=== PATIENT | male | born 1980 | race Caucasian/White ===

== ENCOUNTER 2019-03-06 17:30 | Emergency (ER) | payer SELFPAY ==
[2019-03-06] MEDS ORDERED: HYDROCODONE/APAP 5/325 MG TAB ONE (18:33)
[2019-03-06] MEDS ORDERED: CLINDAMYCIN HCL 150 MG CAP ONE (18:33)
--- NOTE | 2019-03-06 18:46 | ER ---
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 Transition of care: patient was not received from another setting of care. Onset of symptoms was March 06, 2019. Risk Assessment: Do you want to hurt yourself or someone else? Patient reports no desire to harm self or others. Initial Sepsis Screen: Does the patient meet any 2 criteria? No. Patient's initial sepsis screen is negative. Does the patient have a suspected source of infection? No. Patient's initial sepsis screen is negative. Care prior to arrival: None. 17:34 Method Of Arrival: Ambulatory 17:34 Acuity: VIRGIL 4 hj Historical: - Allergies: 17:35 No Known Allergies; hj - PMHx: 17:35 None; hj - PSHx: 17:35 None; hj - Immunization history:: Adult Immunizations up to date. - Social history:: Smoking status: Patient/guardian denies using tobacco. - Ebola Screening: : Patient denies exposure to infectious person Patient denies travel to an Ebola-affected area in the 21 days before illness onset. Screenin:50 Abuse screen: Denies threats or abuse. Denies injuries from another. Nutritional ss screening: No deficits noted. Tuberculosis screening: Never had TB. Fall Risk None identified. Assessment: 17:55 General: Appears in no apparent distress. comfortable, Behavior is calm, cooperative. ss Pain: Complains of pain in right inner thigh Pain currently is 6 out of 10 on a pain scale. Quality of pain is described as tender, Is continuous. Neuro: Level of Consciousness is awake, alert, obeys commands. Cardiovascular: Capillary refill < 3 seconds is brisk in bilateral fingers. Respiratory: Airway is patent Respiratory effort is even, unlabored, Respiratory pattern is regular, symmetrical. EENT: Nares are clear Oral mucosa is moist. Throat is clear. Derm: Skin is intact, is healthy with good turgor, Skin is pink, warm \T\ dry. normal. Musculoskeletal: Range of motion: intact in all extremities. Vital Signs: 17:36 BP 105 / 84; Pulse 85; Resp 16; Temp 97.9(O); Pulse Ox 98% on R/A; Weight 65.77 kg; hj Height 5 ft. 2 in. (157.48 cm); Pain 6/10; 17:36 Body Mass Index 26.52 (65.77 kg, 157.48 cm) hj ED Course: 17:32 Patient arrived in ED. mr 17:35 Triage completed. hj 17:35 Arm band placed on left wrist. hj 17:43 Fanta Farr [facility]NP-C [facility]. snw 17:43 Herminio Conroy MD is Attending Physician. snw 17:50 Patient has correct armband on for positive identification. Bed in low position. Call ss light in reach. 19:11 No provider procedures requiring assistance completed. Patient did not have IV access ss during this emergency room visit. Administered Medications: 18:17 Drug: Clindamycin 300 mg Route: PO; hj 18:22 Follow up: Response: No adverse reaction hj 18:17 Drug: [place] 5 mg-325 mg 1 tabs Route: PO; hj 18:22 Follow up: Response: No adverse reaction hj Outcome: 18:45 Discharge ordered by . snw 19:11 Discharged to home ambulatory. ss 19:11 Condition: good 19:11 Discharge instructions given to patient, family, Instructed on discharge instructions, follow up and referral plans. wound care, Demonstrated understanding of instructions, follow-up care, medications, Prescriptions given X 2. 19:13 Patient left the ED. ss Signatures: Fanta Farr FNP-C BLOOD BANK BUSINESS MANAGER-Eric Jodi Abbott Estefany Kellogg RN RN Paulo Kohli RN RN Corrections: (The following items were deleted from the chart) 17:37 17:36 Pulse 85bpm; Resp 16bpm; Pulse Ox 98% RA; Temp 97.9F Oral; 65.77 kg; Height 5 ft. hj 2 in.; BMI: 26.5; Pain 6/10; hj 17:38 17:34 Presenting complaint: Patient states: i noticed this morning probably i got bit hj by an insect and hurts now; denies taking meds RESEARCH INSTRUCTOR: hj
--- NOTE | 2019-03-06 18:46 | EDPHYS ---
Physician Documentation [facility] Name: Garland Benitez Age: 38 yrs Sex: Male : 1980 Arrival Date: 03/06/2019 Time: 17:32 Bed 11 Private MD: ED Physician Herminio Conroy HPI: 03/06 18:43 This 38 yrs old Male presents to ER via Ambulatory with complaints of Leg snw Pain. 18:43 The patient presents with pain, that is acute. The complaints affect the right inner snw thigh. Context: The problem was sustained at home, abscess to right medial, upper thigh. Onset: The symptoms/episode began/occurred suddenly, this morning. Associated signs and symptoms: The patient has no apparent associated signs or symptoms. Treatment prior to arrival includes: no previous treatment. Severity of symptoms: At their worst the symptoms were moderate. The patient has experienced similar episodes in the past, multiple times. It is unknown whether or not the patient has recently seen a physician. Historical: - Allergies: 17:35 No Known Allergies; hj - PMHx: 17:35 None; hj - PSHx: 17:35 None; hj - Immunization history:: Adult Immunizations up to date. - Social history:: Smoking status: Patient/guardian denies using tobacco. - Ebola Screening: : Patient denies exposure to infectious person Patient denies travel to an Ebola-affected area in the 21 days before illness onset. ROS: 18:31 Constitutional: Negative for fever, chills, and weight loss, Eyes: Negative for injury, snw pain, redness, and discharge, ENT: Negative for injury, pain, and discharge, Neck: Negative for injury, pain, and swelling, Cardiovascular: Negative for chest pain, palpitations, and edema, Respiratory: Negative for shortness of breath, cough, wheezing, and pleuritic chest pain, Abdomen/GI: Negative for abdominal pain, nausea, vomiting, diarrhea, and constipation, Back: Negative for injury and pain, : Negative for injury, bleeding, discharge, and swelling, Skin: Negative for injury, rash, and discoloration, Neuro: Negative for headache, weakness, numbness, tingling, and seizure. 18:31 MS/extremity: Positive for pain, of the right inner thigh, +staph, multiple times, this feels similar. Exam: 18:20 Constitutional: This is a well developed, well nourished patient who is awake, alert, snw and in no acute distress. Head/Face: Normocephalic, atraumatic. Eyes: Pupils equal round and reactive to light, extra-ocular motions intact. Lids and lashes normal. Conjunctiva and sclera are non-icteric and not injected. Cornea within normal limits. Periorbital areas with no swelling, redness, or edema. ENT: Nares patent. No nasal discharge, no septal abnormalities noted. Tympanic membranes are normal and external auditory canals are clear. Oropharynx with no redness, swelling, or masses, exudates, or evidence of obstruction, uvula midline. Mucous membranes moist. Neck: Trachea midline, no thyromegaly or masses palpated, and no cervical lymphadenopathy. Supple, full range of motion without nuchal rigidity, or vertebral point tenderness. No Meningismus. Chest/axilla: Normal chest wall appearance and motion. Nontender with no deformity. No lesions are appreciated. Cardiovascular: Regular rate and rhythm with a normal S1 and S2. No gallops, murmurs, or rubs. Normal PMI, no JVD. No pulse deficits. Respiratory: Lungs have equal breath sounds bilaterally, clear to auscultation and percussion. No rales, rhonchi or wheezes noted. No increased work of breathing, no retractions or nasal flaring. Abdomen/GI: Soft, non-tender, with normal bowel sounds. No distension or tympany. No guarding or rebound. No evidence of tenderness throughout. Back: No spinal tenderness. No costovertebral tenderness. Full range of motion. Neuro: Awake and alert, GCS 15, oriented to person, place, time, and situation. Cranial nerves II-XII grossly intact. Motor strength 5/5 in all extremities. Sensory grossly intact. Cerebellar exam normal. Normal gait. Psych: Awake, alert, with orientation to person, place and time. Behavior, mood, and affect are within normal limits. 18:20 Skin: Appearance: normal except for affected area, lesion(s), two areas of ingrown hair appearance with tenderness, no erythema to upper, medial, right thigh. Vital Signs: 17:36 BP 105 / 84; Pulse 85; Resp 16; Temp 97.9(O); Pulse Ox 98% on R/A; Weight 65.77 kg; hj Height 5 ft. 2 in. (157.48 cm); Pain 6/10; 17:36 Body Mass Index 26.52 (65.77 kg, 157.48 cm) MDM: 17:49 Patient medically screened. snw 18:54 Data reviewed: vital signs, nurses notes. Data interpreted: Pulse oximetry: on room air snw is 98 %. Interpretation: normal. Counseling: I had a detailed discussion with the patient and/or guardian regarding: the historical points, exam findings, and any diagnostic results supporting the discharge/admit diagnosis, the need for outpatient follow up, to return to the emergency department if symptoms worsen or persist or if there are any questions or concerns that arise at home. Response to treatment: There is no appreciated change of the patient's symptoms at this time. Special discussion: Based on the history and exam findings, there is no indication for further emergent testing or inpatient evaluation. I discussed with the patient/guardian the need to see the primary care provider for further evaluation of the symptoms. Administered Medications: 18:17 Drug: Clindamycin 300 mg Route: PO; 18:22 Follow up: Response: No adverse reaction 18:17 Drug: [place] 5 mg-325 mg 1 tabs Route: PO; 18:22 Follow up: Response: No adverse reaction Disposition: 03/07 07:04 Co-signature as Attending Physician, Herminio Conroy MD. rn Disposition: 03/06/19 18:45 Discharged to Home. Impression: Pain in right leg, Cutaneous abscess of groin. - Condition is Stable. - Discharge Instructions: Skin Abscess, Heat Therapy. - Prescriptions for Clindamycin HCl 300 mg Oral Capsule - take 1 capsule by ORAL route every 8 hours for 10 days; 30 capsule. Diclofenac Sodium 75 mg Oral Tablet Sustained Release - take 1 tablet by ORAL route 2 times per day; 30 tablet. - Medication Reconciliation Form, Thank You Letter, Antibiotic Education, Prescription Opioid Use form. - Follow up: Private Physician; When: 2 - 3 days; Reason: Recheck today's complaints, Continuance of care, Re-evaluation by your physician. Follow up: Emergency Department; When: As needed; Reason: Worsening of condition. Signatures: Fanta Farr, SOIL CONSERVATION AIDE-C SOIL CONSERVATION AIDE-Csnw Conroy, HerminioMD MD tommy Shelby, RN RN Paulo Muñoz RN RN Corrections: (The following items were deleted from the chart) 03/06 19:13 18:45 03/06/2019 18:45 Discharged to Home. Impression: Pain in right leg; Cutaneous ss abscess of groin. Condition is Stable. Forms are Medication Reconciliation Form, Thank You Letter, Antibiotic Education, Prescription Opioid Use. Follow up: Private Physician; When: 2 - 3 days; Reason: Recheck today's complaints, Continuance of care, Re-evaluation by your physician. Follow up: Emergency Department; When: As needed; Reason: Worsening of condition. snw
== END 2019-03-06 19:13 | disposition home or self-care (01) ==
LOC: ER 17:30
DX: L02.214 Cutaneous abscess of groin (principal)
CPT/HCPCS: 99283

== ENCOUNTER 2019-04-25 14:52 | Emergency (ER) | payer SELFPAY ==
[2019-04-25] MEDS ORDERED: FLUCONAZOLE 100 MG TAB ONE (15:13)
--- NOTE | 2019-04-25 15:13 | EDPHYS ---
Physician Documentation [facility] Name: Garland Benitez Age: 39 yrs Sex: Male : 1980 Arrival Date: 04/25/2019 Time: 14:54 Bed 11 Private MD: ED Physician Yazan Patino HPI: 04/25 15:14 This 39 yrs old Male presents to ER via Ambulatory with complaints of Rash. snw 15:14 The patient's rash thought to be caused by Dermatitis. The rash is located on the snw anterior aspect of right lateral abdomen. The rash can be described as circular with central clearing. Onset: The symptoms/episode began/occurred gradually, last week. Severity of symptoms: At their worst the symptoms were mild. Treatment given at home: none. It is unknown whether or not the patient has had similar symptoms in the past. It is unknown whether or not the patient has recently seen a physician. Historical: - Allergies: 15:14 Bactrim; la1 - PMHx: 14:59 None; la1 - Immunization history:: Adult Immunizations up to date. - Social history:: Smoking status: Patient/guardian denies using tobacco. - Ebola Screening: : No symptoms or risks identified at this time. ROS: 15:13 Constitutional: Negative for fever, chills, and weight loss, Eyes: Negative for injury, snw pain, redness, and discharge, ENT: Negative for injury, pain, and discharge, Neck: Negative for injury, pain, and swelling, Cardiovascular: Negative for chest pain, palpitations, and edema, Respiratory: Negative for shortness of breath, cough, wheezing, and pleuritic chest pain, Abdomen/GI: Negative for abdominal pain, nausea, vomiting, diarrhea, and constipation, Back: Negative for injury and pain, : Negative for injury, bleeding, discharge, and swelling, MS/Extremity: Negative for injury and deformity, Neuro: Negative for headache, weakness, numbness, tingling, and seizure, Psych: Negative for depression, anxiety, suicide ideation, homicidal ideation, and hallucinations. 15:13 Skin: Positive for rash. Exam: 15:13 Constitutional: This is a well developed, well nourished patient who is awake, alert, snw and in no acute distress. Head/Face: Normocephalic, atraumatic. Eyes: Pupils equal round and reactive to light, extra-ocular motions intact. Lids and lashes normal. Conjunctiva and sclera are non-icteric and not injected. Cornea within normal limits. Periorbital areas with no swelling, redness, or edema. ENT: Nares patent. No nasal discharge, no septal abnormalities noted. Tympanic membranes are normal and external auditory canals are clear. Oropharynx with no redness, swelling, or masses, exudates, or evidence of obstruction, uvula midline. Mucous membranes moist. Neck: Trachea midline, no thyromegaly or masses palpated, and no cervical lymphadenopathy. Supple, full range of motion without nuchal rigidity, or vertebral point tenderness. No Meningismus. Chest/axilla: Normal chest wall appearance and motion. Nontender with no deformity. No lesions are appreciated. Cardiovascular: Regular rate and rhythm with a normal S1 and S2. No gallops, murmurs, or rubs. Normal PMI, no JVD. No pulse deficits. Respiratory: Lungs have equal breath sounds bilaterally, clear to auscultation and percussion. No rales, rhonchi or wheezes noted. No increased work of breathing, no retractions or nasal flaring. Abdomen/GI: Soft, non-tender, with normal bowel sounds. No distension or tympany. No guarding or rebound. No evidence of tenderness throughout. Back: No spinal tenderness. No costovertebral tenderness. Full range of motion. MS/ Extremity: Pulses equal, no cyanosis. Neurovascular intact. Full, normal range of motion. Neuro: Awake and alert, GCS 15, oriented to person, place, time, and situation. Cranial nerves II-XII grossly intact. Motor strength 5/5 in all extremities. Sensory grossly intact. Cerebellar exam normal. Normal gait. Psych: Awake, alert, with orientation to person, place and time. Behavior, mood, and affect are within normal limits. 15:13 Skin: Appearance: normal except for affected area, ringworm, on the right flank area. Vital Signs: 14:59 BP 110 / 74; Pulse 64; Resp 16; Temp 97.7; Pulse Ox 98% on R/A; Weight 70.31 kg; la1 MDM: 15:03 Patient medically screened. [facility] 15:15 Data reviewed: vital signs, nurses notes. Data interpreted: Pulse oximetry: on room air snw is 98 %. Interpretation: normal. Counseling: I had a detailed discussion with the patient and/or guardian regarding: the historical points, exam findings, and any diagnostic results supporting the discharge/admit diagnosis, the need for outpatient follow up, to return to the emergency department if symptoms worsen or persist or if there are any questions or concerns that arise at home. Special discussion: Based on the history and exam findings, there is no indication for further emergent testing or inpatient evaluation. I discussed with the patient/guardian the need to see the primary care provider for further evaluation of the symptoms. Administered Medications: 15: Drug: Fluconazole 200 mg Route: PO; la1 15:19 Follow up: Response: Medication administered at discharge. la1 Disposition: 04/26 06:50 Co-signature as Attending Physician, Yazan Patino MD I agree with the assessment and liz plan of care. Disposition: 04/25/19 15:10 Discharged to Home. Impression: Tinea corporis. - Condition is Stable. - Discharge Instructions: Body Ringworm. - Prescriptions for Clotrimazole 1 % Topical Cream - Apply to affected area 1 application by TOPICAL route every 12 hours; 15 gram. - Medication Reconciliation Form, Thank You Letter, Antibiotic Education, Prescription Opioid Use form. - Work release form (04/25/19 16:34). bd - Follow up: Private Physician; When: 2 - 3 days; Reason: Recheck today's complaints, Continuance of care, Re-evaluation by your physician. Follow up: Emergency Department; When: As needed; Reason: Worsening of condition. Signatures: Yazan Patino MD MD cha Therrien, Shelly, BENEFIT AUTHORIZER-C BENEFIT AUTHORIZER-Csnw Delgado Jaimes RN RN Arabella Harper bd Corrections: (The following items were deleted from the chart) 04/25 15:15 14:59 Allergies: No Known Allergies; la1 la1 15:19 15:10 04/25/2019 15:10 Discharged to Home. Impression: Tinea corporis. Condition is la1 Stable. Forms are Medication Reconciliation Form, Thank You Letter, Antibiotic Education, Prescription Opioid Use. Follow up: Private Physician; When: 2 - 3 days; Reason: Recheck today's complaints, Continuance of care, Re-evaluation by your physician. Follow up: Emergency Department; When: As needed; Reason: Worsening of condition. snw
--- NOTE | 2019-04-25 15:13 | ER ---
Nurse's Notes [facility] Name: Garland Benitez Age: 39 yrs Sex: Male : 1980 Arrival Date: 04/25/2019 Time: 14:54 Bed 11 Private MD: Diagnosis: Tinea corporis Presentation: 04/25 14:58 Presenting complaint: Patient states: I think I have ringworm on my belly. Transition la1 of care: patient was not received from another setting of care. Onset of symptoms was April 25, 2019. Risk Assessment: Do you want to hurt yourself or someone else? Patient reports no desire to harm self or others. Initial Sepsis Screen: Does the patient meet any 2 criteria? No. Patient's initial sepsis screen is negative. Does the patient have a suspected source of infection? No. Patient's initial sepsis screen is negative. Care prior to arrival: None. 14:58 Method Of Arrival: Ambulatory la1 14:58 Acuity: VIRGIL 5 la1 Historical: - Allergies: 15:14 Bactrim; la1 - PMHx: 14:59 None; la1 - Immunization history:: Adult Immunizations up to date. - Social history:: Smoking status: Patient/guardian denies using tobacco. - Ebola Screening: : No symptoms or risks identified at this time. Screenin:59 Abuse screen: Denies threats or abuse. Nutritional screening: No deficits noted. la1 Tuberculosis screening: No symptoms or risk factors identified. Fall Risk None identified. Assessment: 14:59 General: Appears in no apparent distress. Behavior is calm, cooperative. Pain: Denies la1 pain. Neuro: Level of Consciousness is awake, alert, obeys commands, Gait is steady. Cardiovascular: Capillary refill < 3 seconds Patient's skin is warm and dry. Derm: Rash noted that is round maculopapular rash noted to abd, multiple sites. Pt reports itching. Vital Signs: 14:59 BP 110 / 74; Pulse 64; Resp 16; Temp 97.7; Pulse Ox 98% on R/A; Weight 70.31 kg; la1 ED Course: 14:54 Patient arrived in ED. as 14:57 [facility]C [facility] snw 14:57 Herminio Conroy MD is Attending Physician. snw 14:58 Triage completed. la1 14:59 Arm band placed on right wrist. la1 15:00 Patient has correct armband on for positive identification. la1 15:03 Attending Physician role handed off by Herminio Conroy MD [facility] 15:03 Yazan Patino MD is Attending Physician. [facility] 15:15 No provider procedures requiring assistance completed. Patient did not have IV access la1 during this emergency room visit. 15:18 Delgado Jaimes, RN is Primary Nurse. la1 Administered Medications: 15:19 Drug: Fluconazole 200 mg Route: PO; la1 15:19 Follow up: Response: Medication administered at discharge. la1 Outcome: 15:10 Discharge ordered by MD. snw 15:15 Discharged to home ambulatory. la1 15:15 Condition: stable 15:15 Discharge instructions given to patient, Instructed on discharge instructions, follow up and referral plans. medication usage, Demonstrated understanding of instructions, follow-up care, medications, Prescriptions given X 1. 15:19 Patient left the ED. la1 Signatures: Yazan Patino MD MD cha Therrien, Shelly, WIRELESS NETWORK ENGINEER-C WIRELESS NETWORK ENGINEER-Csnw Deanna Canales as Delgado Jaimes, RN RN la1 Corrections: (The following items were deleted from the chart) 15:15 14:59 Allergies: No Known Allergies; la1 la1
== END 2019-04-25 15:19 | disposition home or self-care (01) ==
LOC: ER 14:52
DX: B35.4 Tinea corporis (principal); Z88.1 Allergy status to other antibiotic agents
CPT/HCPCS: 99283

== ENCOUNTER 2019-11-27 10:20 | Emergency (ER) | payer SELFPAY ==
[2019-11-27] MEDS ORDERED: MORPHINE 4 MG/ML SYR ONE (10:50)
[2019-11-27] MEDS ORDERED: NA CHLORIDE 0.9% 1,000 ML ONE ×2 (10:50→12:26)
[2019-11-27] MEDS ORDERED: ONDANSETRON 4 MG/2 ML VIAL ONE (10:50)
[2019-11-27 11:11] LABS: Absolute Lymphocytes (CBC) 1.7 K/uL (0.7-4.9); Basophils % 0.9 % (0-1.3); Hematocrit 46.8 % (39.6-49.0); Lymphocytes % 13.5 % (15.3-44.8); MPV 8.4 fL (7.6-11.3)
--- NOTE | 2019-11-27 11:13 | RAD REPORT ---
EXAM DESCRIPTION: CT - Abdomen Pelvis Wo Contrast - 11/27/2019 11:02 am CLINICAL HISTORY: EPIGASTRIC PAIN Left flank and back pain COMPARISON: CT-STONE PROTOCOL dated 01/03/2008; CTSTONE PROTOCOL dated 02/03/2007 TECHNIQUE: Axial [address] imaging of the abdomen and pelvis was performed without IV contrast. No IV contrast was given because of allergy, abnormal renal function, patient refusal or physician re quest. No oral contrast administered. All CT scans are performed using dose optimization technique as appropriate and may include automated exposure control or mA/KV adjustment according to patient size. FINDINGS: No suspicious findings in the lung bases. The liver, spleen and pancreas show no suspicious findings on non-contrast imaging. Gallbladder and b iliary tree are also without suspicious finding. Mild left-sided hydronephrosis is present down to the UVJ. There is a 2- 3 millimeter stone in the bl adder likely recently passed from the left collecting system. Mucosal edema near the UVJ may be the e tiology for the hydronephrosis. There is minimal stranding along the course of the left ureter. No ot her obstructing or nonobstructing calculi. No right-sided hydronephrosis. No significant adrenal fin ding. Isodense renal masses and pyelonephritis cannot be excluded in the absence of IV contrast. No o ther urinary bladder calculi. Bladder is mostly contracted which accentuates wall thickness. No dilated bowel loops or bowel wall thickening. No free air, free fluid or pneumatosis. No mass or bulky lymphadenopathy. Patient has a small fat only umbilical hernia that has increased since the 200 8 comparison study. Small fat only inguinal hernias are present bilaterally. These also increased fro 2007. No suspicious bony findings. IMPRESSION: Mild left-sided hydronephrosis is present down to the left UVJ. There is a small 2- 3 mm stone in the bladder, likely recently passed from the left ureter. Blood, debris or remnant mucosal thickening may account for the residual left-sided hydronephrosis. No other obstructing or nonobstructing calculi. Pyelonephritis and isodense masses are not excluded i n the absence of contrast. No other significant findings noted. Full assessment is limited is the absence of IV contrast.
[2019-11-27] MEDS ORDERED: HYDROMORPHONE HCL 1 MG/ML INJ ONE (11:27)
[2019-11-27 11:44] LABS: ALT/SGPT 29 U/L (12-78); AST/SGOT 24 U/L (15-37); Albumin 3.9 g/dL (3.4-5.0); Alkaline Phosphatase 73 U/L (45-117); BUN Blood Urea Nitrogen 13 mg/dL (7-18); Bicarbonate 28 mmol/L (21-32); Bilirubin Direct < 0.1 mg/dL (0-0.2); Bilirubin Total 0.3 mg/dL (0.2-1.0); Glucose Level 130 mg/dL (74-106); Lipase 104 U/L (73-393); Potassium 4.2 mmol/L (3.5-5.1); Protein, Total 7.5 g/dL (6.4-8.2); Sodium Level 139 mmol/L (136-145)
--- NOTE | 2019-11-27 12:57 | EDPHYS ---
Physician Documentation [facility] Name: Garland Benitez Age: 39 yrs Sex: Male : 1980 Arrival Date: 11/27/2019 Time: 10:22 Bed 19 Private MD: ED Physician Victoriano Perdomo HPI: 11/26 12:54 This 39 yrs old Male presents to ER via Ambulatory with complaints of ma2 Abdominal Pain, Back Pain. 12:54 The patient presents with pain that is acute. Onset: The symptoms/episode ma2 began/occurred acutely, 1 day(s) ago. Associated signs and symptoms: Pertinent negatives: dysuria, hematuria, nausea, numbness. Severity of symptoms: At their worst the symptoms were very mild, severe, in the emergency department the symptoms have resolved, have improved. The patient has experienced a previous episode, The patient has experienced similar episodes in the past. Historical: - Allergies: 10:47 Bactrim; iw - Home Meds: 10:47 None [Active]; iw - PMHx: 10:47 None; iw - PSHx: 10:47 None; iw - Immunization history:: Adult Immunizations not up to date. - Social history:: Smoking status: Patient denies any tobacco usage or history of. Patient/guardian denies using alcohol, street drugs, The patient lives with spouse. - Family history:: not pertinent. ROS: 12:54 Constitutional: Negative for fever, chills, and weight loss. ma2 12:54 All other systems are negative. Exam: 12:54 Constitutional: This is a well developed, well nourished patient who is awake, alert, ma2 and in no acute distress. Chest/axilla: Normal chest wall appearance and motion. Nontender with no deformity. No lesions are appreciated. Cardiovascular: Regular rate and rhythm with a normal S1 and S2. No gallops, murmurs, or rubs. Normal PMI, no JVD. No pulse deficits. Respiratory: Lungs have equal breath sounds bilaterally, clear to auscultation and percussion. No rales, rhonchi or wheezes noted. No increased work of breathing, no retractions or nasal flaring. Abdomen/GI: Soft, non-tender, with normal bowel sounds. No distension or tympany. No guarding or rebound. No evidence of tenderness throughout. Vital Signs: 10:44 BP 112 / 82; Pulse 62; Resp 16; Temp 97.8; Pulse Ox 100% ; Weight 65.77 kg; Height 5 iw ft. 2 in. (157.48 cm); Pain 10/10; 11:31 BP 112 / 82; Pulse 64; Resp 17 S; Pulse Ox 99% on R/A; ca1 12:34 BP 134 / 93; Pulse 60; Resp 17 S; Pulse Ox 98% on R/A; ca1 13:02 BP 134 / 93; Pulse 55; Resp 17 S; Temp 97.7(O); Pulse Ox 97% on R/A; ca1 10:44 Body Mass Index 26.52 (65.77 kg, 157.48 cm) iw MDM: 10:32 Patient medically screened. ma2 12:54 Differential diagnosis: Metastatic Disease sickle cell crisis, sprain, ma2 Ureterolithiasis. Data reviewed: vital signs, nurses notes. Counseling: I had a detailed discussion with the patient and/or guardian regarding: the historical points, exam findings, and any diagnostic results supporting the discharge/admit diagnosis, the presence of at least one elevated blood pressure reading (>120/80) during this emergency department visit, lab results, the need for outpatient follow up. Response to treatment: the patient's symptoms have resolved after treatment. 11/26 10:47 Order name: Basic Metabolic Panel; Complete Time: 11:57 ma2 11/26 10:47 Order name: CBC with Diff; Complete Time: 11:57 ma2 11/26 10:47 Order name: Creatinine for Radiology; Complete Time: 11:57 ma2 11/26 10:47 Order name: Hepatic Function; Complete Time: 11:57 ma2 11/26 10:47 Order name: Lipase; Complete Time: 11:57 ma2 11/26 10:47 Order name: CT Abd/Pelvis - Without Contrast; Complete Time: 11:57 ma2 11/26 10:47 Order name: IV Saline Lock; Complete Time: 10:56 ma11/26 10:47 Order name: Labs collected and sent; Complete Time: 10:56 ma2 Administered Medications: 10:43 Drug: NS 0.9% 1000 ml Route: IV; Rate: 1 bolus; Site: left antecubital; ca1 12:00 Follow up: Response: No adverse reaction; IV Status: Completed infusion ca1 10:45 Drug: Zofran (Ondansetron) 4 mg Route: IVP; Site: left antecubital; ca1 11:25 Follow up: Response: No adverse reaction; Nausea is decreased ca1 10:48 Drug: morphine 4 mg {Note: rass - 0 .} Route: IVP; Site: left antecubital; ca1 11:25 Follow up: Response: No adverse reaction; Pain is unchanged, physician notified; RASS: ca1 Alert and Calm (0) 11:24 Drug: Dilaudid 1 mg {Note: RASS - 0.} Route: IVP; Site: left antecubital; ca1 12:30 Follow up: Response: No adverse reaction; Pain is decreased; RASS: Alert and Calm (0) ca1 12:26 Drug: NS 0.9% 1000 ml Route: IV; Rate: 1 bolus; Site: left antecubital; em Disposition: 11/27/19 12:56 Discharged to Home. Impression: Calculus in bladder. - Condition is Stable. - Discharge Instructions: Lithotripsy, Dietary Guidelines to Help Prevent Kidney Stones. - Prescriptions for Zofran 4 mg Oral Tablet - take 1 tablet by ORAL route every 12 hours As needed; 20 tablet. Flomax 0.4 mg Oral Capsule, Sust. Release 24 hr - take 1 capsule by ORAL route once daily 1/2 hour following the same meal each day; 30 capsule. Ibuprofen 800 mg Oral Tablet - take 1 tablet by ORAL route every 12 hours As needed take with food; 20 tablet. - Medication Reconciliation Form, Thank You Letter, Antibiotic Education, Prescription Opioid Use, Work release form form. - Follow up: Shea Charles MD; When: 24 Hours; Reason: If symptoms return, Further diagnostic work-up, Continuance of care. Signatures: Dispatcher [employer] Scott Sierra RN RN em Teresa Snell RN RN iw Alzahri, Mohammad, MD MD ma2 Acob, Cheryl, RN RN ca1 Corrections: (The following items were deleted from the chart) 13:43 10:47 Urine Dipstick-Ancillary ordered. nadir ca1 13:44 12:56 11/27/2019 12:56 Discharged to Home. Impression: Calculus in bladder. Condition ca1 is Stable. Prescriptions for Zofran 4 mg Oral Tablet - take 1 tablet by ORAL route every 12 hours As needed; 20 tablet, Flomax 0.4 mg Oral Capsule, Sust. Release 24 hr - take 1 capsule by ORAL route once daily 1/2 hour following the same meal each day; 30 capsule, Tylenol-Codeine #3 300-30 mg Oral Tablet - take 2 tablet by ORAL route every 6 hours As needed; 30 tablet. and Forms are Medication Reconciliation Form, Thank You Letter, Antibiotic Education, Prescription Opioid Use. Follow up: Shea Charles; When: 24 Hours; Reason: If symptoms return, Further diagnostic work-up, Continuance of care. ma2
--- NOTE | 2019-11-27 12:57 | ER ---
Nurse's Notes [facility] Name: Garland Benitez Age: 39 yrs Sex: Male : 1980 Arrival Date: 11/27/2019 Time: 10:22 Bed 19 Private MD: Diagnosis: Calculus in bladder Presentation: 11/26 10:44 Chief complaint: Patient states: mid abd pain and left mid back pain since this iw morning, +hx of kidney stones. Coronavirus screen: The patient has NOT traveled to a country currently being monitored by the [facility] within the last 14 days. The patient has NOT had contact with any known and/or suspected case of coronavirus. Proceed with normal triage procedures. Ebola Screen: Patient negative for fever greater than or equal to 101.5 degrees Fahrenheit, and additional compatible Ebola Virus Disease symptoms Patient denies travel to an Ebola-affected area in the 21 days before illness onset. Initial Sepsis Screen: Does the patient meet any 2 criteria? No. Patient's initial sepsis screen is negative. Does the patient have a suspected source of infection? No. Patient's initial sepsis screen is negative. Risk Assessment: Do you want to hurt yourself or someone else? Patient reports no desire to harm self or others. 10:44 Method Of Arrival: Ambulatory iw 10:44 Acuity: VIRGIL 3 iw 10:45 Onset of symptoms was November 27, 2019. ca1 Historical: - Allergies: 10:47 Bactrim; iw - Home Meds: 10:47 None [Active]; iw - PMHx: 10:47 None; iw - PSHx: 10:47 None; iw - Immunization history:: Adult Immunizations not up to date. - Social history:: Smoking status: Patient denies any tobacco usage or history of. Patient/guardian denies using alcohol, street drugs, The patient lives with spouse. - Family history:: not pertinent. Screenin:45 Abuse screen: Denies threats or abuse. Denies injuries from another. Nutritional ca1 screening: No deficits noted. Tuberculosis screening: No symptoms or risk factors identified. Fall Risk IV access (20 points). Assessment: 10:45 General: Appears in no apparent distress. uncomfortable, Behavior is cooperative, ca1 appropriate for age. Pain: Complains of pain in right lower quadrant and left lower quadrant Pain radiates to left low back and left mid back Pain currently is 10 out of 10 on a pain scale. Is continuous. Neuro: Level of Consciousness is awake, alert, obeys commands, Oriented to person, place, time, situation, Appropriate for age. Cardiovascular: Heart tones S1 S2 present Capillary refill < 3 seconds Patient's skin is warm and dry. Respiratory: Airway is patent Respiratory effort is even, unlabored, Respiratory pattern is regular, symmetrical, Breath sounds are clear bilaterally. GI: Abdomen is flat, non-distended, Bowel sounds present X 4 quads. Abd is soft and non tender X 4 quads. : No signs and/or symptoms were reported regarding the genitourinary system. EENT: No signs and/or symptoms were reported regarding the EENT system. Derm: Skin is intact, is healthy with good turgor, Skin is pink, warm \T\ dry. Musculoskeletal: Circulation, motion, and sensation intact. Capillary refill < 3 seconds. 10:57 Reassessment: Pt to CT. ca1 11:31 Reassessment: Patient appears in no apparent distress at this time. Patient and/or ca1 family updated on plan of care and expected duration. Pain level reassessed. Patient is alert, oriented x 3, equal unlabored respirations, skin warm/dry/pink. 12:34 Reassessment: Patient appears in no apparent distress at this time. Patient and/or ca1 family updated on plan of care and expected duration. Pain level reassessed. Patient is alert, oriented x 3, equal unlabored respirations, skin warm/dry/pink. 13:02 Reassessment: Patient appears in no apparent distress at this time. Patient and/or ca1 family updated on plan of care and expected duration. Pain level reassessed. Patient is alert, oriented x 3, equal unlabored respirations, skin warm/dry/pink. Patient states feeling better. Vital Signs: 10:44 BP 112 / 82; Pulse 62; Resp 16; Temp 97.8; Pulse Ox 100% ; Weight 65.77 kg; Height 5 iw ft. 2 in. (157.48 cm); Pain 10/10; 11:31 BP 112 / 82; Pulse 64; Resp 17 S; Pulse Ox 99% on R/A; ca1 12:34 BP 134 / 93; Pulse 60; Resp 17 S; Pulse Ox 98% on R/A; ca1 13:02 BP 134 / 93; Pulse 55; Resp 17 S; Temp 97.7(O); Pulse Ox 97% on R/A; ca1 10:44 Body Mass Index 26.52 (65.77 kg, 157.48 cm) iw ED Course: 10:22 Patient arrived in ED. ag5 10:32 Victoriano Perdomo MD is Attending Physician. ma2 10:45 Patient has correct armband on for positive identification. Placed in gown. Bed in low ca1 position. Call light in reach. Side rails up X2. Pulse ox on. NIBP on. Warm blanket given. 10:45 Arm band placed on. ca1 10:46 Triage completed. iw 10:48 Inserted saline lock: 20 gauge in left antecubital area, using aseptic technique. iw 10:55 Mela Mendoza, RN is Primary Nurse. ca1 11:01 CT Abd/Pelvis - Without Contrast In Process Unspecified. EDMS 12:55 Shea Charles MD is Referral Physician. ma2 13:30 No provider procedures requiring assistance completed. IV discontinued, intact, ca1 bleeding controlled, No redness/swelling at site. Administered Medications: 10:43 Drug: NS 0.9% 1000 ml Route: IV; Rate: 1 bolus; Site: left antecubital; ca1 12:00 Follow up: Response: No adverse reaction; IV Status: Completed infusion ca1 10:45 Drug: Zofran (Ondansetron) 4 mg Route: IVP; Site: left antecubital; ca1 11:25 Follow up: Response: No adverse reaction; Nausea is decreased ca1 10:48 Drug: morphine 4 mg {Note: rass - 0 .} Route: IVP; Site: left antecubital; ca1 11:25 Follow up: Response: No adverse reaction; Pain is unchanged, physician notified; RASS: ca1 Alert and Calm (0) 11:24 Drug: Dilaudid 1 mg {Note: RASS - 0.} Route: IVP; Site: left antecubital; ca1 12:30 Follow up: Response: No adverse reaction; Pain is decreased; RASS: Alert and Calm (0) ca1 12:26 Drug: NS 0.9% 1000 ml Route: IV; Rate: 1 bolus; Site: left antecubital; em Outcome: 12:56 Discharge ordered by . ma2 13:30 Discharged to home ambulatory, with family. ca1 13:30 Condition: stable 13:30 Discharge instructions given to patient, Instructed on discharge instructions, follow up and referral plans. medication usage, Demonstrated understanding of instructions, follow-up care, medications, Prescriptions given X 3. 13:44 Patient left the ED. ca1 Signatures: Dispatcher [employer] Scott Sierra RN RN em Williams, Irene, RN RN iw Victoriano Perdomo MD MD ma2 Mela Mendoza RN RN ca1 Vinicio Hickey ag5 Corrections: (The following items were deleted from the chart) 13:02 13:02 Reassessment: Patient appears in no apparent distress at this time. Patient ca1 and/or family updated on plan of care and expected duration. Pain level reassessed. Patient is alert, oriented x 3, equal unlabored respirations, skin warm/dry/pink. ca1
[2019-11-27 14:03] VITALS: BP 134/93
[2019-11-27 14:05] VITALS: TEMP 97.7; O2SAT 97
== END 2019-11-27 13:44 | disposition home or self-care (01) ==
LOC: ER 10:20
DX: N21.0 Calculus in bladder (principal); Z88.1 Allergy status to other antibiotic agents
CPT/HCPCS: 36415; 74176; 80048; 80076; 83690; 85025; 96361; 96374; 96375; 99284; J1170; J2405; J7030